=== PATIENT | female | born 1980 | race Caucasian/White ===

== ENCOUNTER 2019-10-31 10:35 | Inpatient (IN) | payer OTHER ==
[~2019-10-31] VITALS: Ht 160 cm; Wt 54.9 kg
[2019-10-31 11:14] VITALS: BP_SYST 111
[2019-10-31] MEDS ORDERED: ONDANSETRON 4 MG ODT TAB PO ONE (13:45)
[2019-10-31] MEDS ORDERED: KETOROLAC TROMETHAMINE 60 MG/2 ML VIAL IM ONE (13:45)
[2019-10-31] MEDS ORDERED: MORPHINE 4 MG/ML INJ. SYRINGE IM ONE (13:45)
[2019-10-31] MEDS ORDERED: NACL 0.9% 1,000 ML IV ONE (15:45)
[2019-10-31] MEDS ORDERED: MORPHINE 2 MG/ML INJ. SYRINGE IM ONE (15:45)
[2019-10-31] MEDS ORDERED: METHOCARBAMOL 1000 MG/10 ML VIAL IVP ONE (15:45)
[2019-10-31] MEDS ORDERED: MORPHINE 2 MG/ML INJ. SYRINGE IVP ONE (15:45)
[2019-10-31 16:26] LABS: BASOPHILS % (AUTO) 0.3 % (0.0-2.0); EOSINOPHILS % (AUTO) 0.2 % (0.0-4.0); HEMATOCRIT 38.2 % (36-48); HEMOGLOBIN 12.1 g/dL (12.0-16.0); LYMPHOCYTES # (AUTO) 1.7 K/uL (1.0-5.5); LYMPHOCYTES % (AUTO) 24.8 % (20.5-51.5); MEAN CORPUSCULAR HEMOGLOBIN 24 pg (27-31); MEAN CORPUSCULAR HGB CONC 32 % (32-36); MEAN CORPUSCULAR VOLUME 77 fL (79.0-98.0); MONOCYTES # (AUTO) 0.7 K/uL (0.0-1.0); MONOCYTES % (AUTO) 10.6 % (1.7-9.3); NEUTROPHILS # (AUTO) 4.4 K/uL (1.8-7.7); NEUTROPHILS % (AUTO) 64.1 % (40.0-70.0); PLATELET COUNT (AUTO) 205 K/uL (130-430); RED BLOOD CELL COUNT(AUTO) 4.97 MIL/uL (4.2-6.2); RED CELL DISTRIBUTION WIDTH 14.4 % (9.0-15.0); WHITE BLOOD COUNT (AUTO) 6.8 K/uL (4.8-10.8)
[2019-10-31 17:05] LABS: CALCIUM 8.2 mg/dL (8.4-11.0); CREATININE 0.81 mg/dL (0.55-1.30); POTASSIUM 3.7 mmol/L (3.5-5.1)
[2019-10-31 17:17] LABS: ALBUMIN 3.1 g/dL (3.4-4.8); TOTAL BILIRUBIN 0.5 mg/dL (0.0-1.0)
[2019-10-31] MEDS ORDERED: HYDROcodone/ACETAMIN 5-325 MG TAB (NORCO/ VICODIN) PO PRN (18:15)
[2019-10-31] MEDS ORDERED: ONDANSETRON HCL 4 MG/2 ML VIAL IVP PRN (18:15)
[2019-10-31] MEDS ORDERED: LORazepam 2 MG/ML VIAL IVP PRN (18:15)
[2019-10-31] MEDS ORDERED: ACETAMINOPHEN 325 MG TABLET PO PRN (18:15)
[2019-10-31] MEDS: HYDROcodone/ACETAMIN 10-325 MG TAB PO PRN (19:36)
[2019-10-31 20:49] VITALS: BP_SYST 116
[2019-10-31] MEDS: BACLOFEN 10 MG TABLET PO SCH (21:17)
[2019-10-31] MEDS: NORMAL SALINE 5 ML DISP.SYRIN IVF SCH ×2 (21:17→21:18)
[2019-10-31] MEDS: IBUPROFEN 800 MG TABLET PO SCH (21:17)
[2019-11-01 01:05] VITALS: BP_SYST 96
[2019-11-01] MEDS: HYDROcodone/ACETAMIN 10-325 MG TAB PO PRN ×3 (04:50→15:24)
[2019-11-01] MEDS: NORMAL SALINE 5 ML DISP.SYRIN IVF SCH ×6 (05:45→22:08)
[2019-11-01 06:43] LABS: BASOPHILS % (AUTO) 0.6 % (0.0-2.0); EOSINOPHILS # (AUTO) 0.1 K/uL (0.0-0.4); EOSINOPHILS % (AUTO) 1.2 % (0.0-4.0); HEMATOCRIT 36.5 % (36-48); HEMOGLOBIN 11.8 g/dL (12.0-16.0); LYMPHOCYTES # (AUTO) 1.6 K/uL (1.0-5.5); LYMPHOCYTES % (AUTO) 33.2 % (20.5-51.5); MEAN CORPUSCULAR HEMOGLOBIN 25 pg (27-31); MEAN CORPUSCULAR HGB CONC 32 % (32-36); MEAN CORPUSCULAR VOLUME 78 fL (79.0-98.0); MONOCYTES # (AUTO) 0.5 K/uL (0.0-1.0); MONOCYTES % (AUTO) 9.8 % (1.7-9.3); NEUTROPHILS # (AUTO) 2.6 K/uL (1.8-7.7); NEUTROPHILS % (AUTO) 55.2 % (40.0-70.0); PLATELET COUNT (AUTO) 190 K/uL (130-430); RED BLOOD CELL COUNT(AUTO) 4.69 MIL/uL (4.2-6.2); RED CELL DISTRIBUTION WIDTH 14.7 % (9.0-15.0); WHITE BLOOD COUNT (AUTO) 4.7 K/uL (4.8-10.8)
[2019-11-01 07:19] LABS: CALCIUM 8.1 mg/dL (8.4-11.0); CREATININE 0.73 mg/dL (0.55-1.30); POTASSIUM 3.5 mmol/L (3.5-5.1)
[2019-11-01] MEDS: BACLOFEN 10 MG TABLET PO SCH ×3 (09:22→20:36)
[2019-11-01] MEDS: IBUPROFEN 800 MG TABLET PO SCH ×3 (09:25→20:36)
[2019-11-01 11:30] VITALS: BP_SYST 117
[2019-11-01 15:21] VITALS: BP_SYST 119
[2019-11-01 17:29] VITALS: BP_SYST 117
[2019-11-01] MEDS ORDERED: OXYCODONE/ACETAMINOPHEN 5-325 TABLET PO PRN (17:45)
[2019-11-01 20:00] VITALS: BP_SYST 115
[2019-11-01] MEDS: HYDROcodone/ACETAMIN 5-325 MG TAB (NORCO/ VICODIN) PO PRN (20:41)
[2019-11-01] MEDS ORDERED: MORPHINE 2 MG/ML INJ. SYRINGE IVP PRN (21:30)
[2019-11-01] MEDS ORDERED: KETOROLAC TROMETHAMINE 30 MG VIAL IVP PRN (21:30)
[2019-11-01] MEDS ORDERED: KETOROLAC TROMETHAMINE 30 MG VIAL IM ONE (21:30)
[2019-11-02] VITALS: BP_SYST 109
[2019-11-02 06:40] LABS: BASOPHILS % (AUTO) 0.5 % (0.0-2.0); EOSINOPHILS # (AUTO) 0.1 K/uL (0.0-0.4); EOSINOPHILS % (AUTO) 1.6 % (0.0-4.0); HEMATOCRIT 40.5 % (36-48); HEMOGLOBIN 12.9 g/dL (12.0-16.0); LYMPHOCYTES # (AUTO) 1.5 K/uL (1.0-5.5); LYMPHOCYTES % (AUTO) 28.5 % (20.5-51.5); MEAN CORPUSCULAR HEMOGLOBIN 25 pg (27-31); MEAN CORPUSCULAR HGB CONC 32 % (32-36); MEAN CORPUSCULAR VOLUME 77 fL (79.0-98.0); MONOCYTES # (AUTO) 0.5 K/uL (0.0-1.0); NEUTROPHILS # (AUTO) 3.2 K/uL (1.8-7.7); NEUTROPHILS % (AUTO) 60.4 % (40.0-70.0); PLATELET COUNT (AUTO) 197 K/uL (130-430); RED BLOOD CELL COUNT(AUTO) 5.27 MIL/uL (4.2-6.2); RED CELL DISTRIBUTION WIDTH 14.6 % (9.0-15.0); WHITE BLOOD COUNT (AUTO) 5.3 K/uL (4.8-10.8)
[2019-11-02 06:57] LABS: CREATININE 0.76 mg/dL (0.55-1.30); POTASSIUM 3.7 mmol/L (3.5-5.1)
[2019-11-02] MEDS: IBUPROFEN 800 MG TABLET PO SCH ×3 (08:58→22:41)
[2019-11-02] MEDS: BACLOFEN 10 MG TABLET PO SCH ×3 (08:58→20:58)
[2019-11-02] MEDS: HYDROcodone/ACETAMIN 5-325 MG TAB (NORCO/ VICODIN) PO PRN ×3 (11:28→21:04)
[2019-11-02 12:54] VITALS: BP_SYST 112
[2019-11-02 17:13] VITALS: BP_SYST 122
[2019-11-02 19:50] VITALS: BP_SYST 142
[2019-11-02] MEDS: NORMAL SALINE 5 ML DISP.SYRIN IVF SCH ×2 (22:00)
[2019-11-02 23:57] VITALS: BP_SYST 120
[2019-11-03] MEDS: MORPHINE 4 MG/ML INJ. SYRINGE IVP PRN ×2 (00:17→05:56)
[2019-11-03] MEDS: NORMAL SALINE 5 ML DISP.SYRIN IVF SCH ×4 (05:52→13:44)
[2019-11-03 08:07] VITALS: BP_SYST 122
[2019-11-03] MEDS: IBUPROFEN 800 MG TABLET PO SCH ×2 (08:52→15:09)
[2019-11-03] MEDS: BACLOFEN 10 MG TABLET PO SCH ×2 (08:52→15:09)
[2019-11-03 12:05] VITALS: BP_SYST 150
[2019-11-03] MEDS ORDERED: IBUP-1970 PO (14:18)
[2019-11-03] MEDS ORDERED: HYDR-4272 PO (14:18)
[2019-11-03] MEDS ORDERED: BACL10TA PO (14:18)
[2019-11-03] MEDS ORDERED: OXYC-128 PO (14:18)
[2019-11-03 15:24] VITALS: BP_SYST 150
[2019-11-03 16:31] VITALS: BP_SYST 145
== END 2019-11-03 17:40 | disposition home health service (06) | DRG 556 ==
LOC: SED 10:35 → SMU 17:02
PROVIDERS: ADMIT Preventive Medicine Preventive Medicine/Occupational Environmental Medicine; ATTEND Preventive Medicine Preventive Medicine/Occupational Environmental Medicine
DX: M25.551 Pain in right hip (principal); E44.0 Moderate protein-calorie malnutrition; E83.51 Hypocalcemia; E88.09 Other disorders of plasma-protein metabolism, not elsewhere classified; D72.819 Decreased white blood cell count, unspecified; D64.9 Anemia, unspecified; R73.9 Hyperglycemia, unspecified; R53.81 Other malaise; Z68.21 Body mass index [BMI] 21.0-21.9, adult
CPT/HCPCS: 36415; 72170-TC; 73502; 73700-TC; 80048; 80053; 82550-TC; 85025; 93005; 96361; 96372; 96374; 97110-GP; 97116-GP; 99285; J1885; J2270; J2405; J2800; J7030; Q0162